=== PATIENT | male | born 1975 | race Caucasian/White ===

== ENCOUNTER → 2018-05-28 | Outpatient (CLI) | payer OTHER ==
[~2018-05-28] VITALS: Ht 180.3 cm; Wt 132.0 kg
[~2018-05-28] MED LIST: ABILIFY20 MG PO; CATAPRES 0.1MG0.1 MG PO; GLUCOPHAGE1000 MG PO; INSLANT SQ; LAMICTAL200 MG PO; LIPITOR 80MG80 MG PO; PROZAC 20MG20 MG PO; REMERON30 MG PO; VICTOZA6 MG/ML SQ; VISTARIL50 MG PO; ZESTRIL40 MG PO
[2018-05-28 14:35] VITALS: BP 120/80; PULSE 60
== END ==
LOC: LIGHT 12:56
DX: G47.33 Obstructive sleep apnea (adult) (pediatric) (principal); F32.9 Major depressive disorder, single episode, unspecified; I10 Essential (primary) hypertension; E66.9 Obesity, unspecified; Z79.4 Long term (current) use of insulin; Z71.3 Dietary counseling and surveillance
CPT/HCPCS: G0463

== ENCOUNTER → 2018-06-18 | Outpatient (CLI) | payer OTHER | LOC: LIGHT 10:06 | DX: G47.33 Obstructive sleep apnea (adult) (pediatric) (principal); F32.9 Major depressive disorder, single episode, unspecified; I10 Essential (primary) hypertension; E66.9 Obesity, unspecified; Z68.41 Body mass index [BMI] 40.0-44.9, adult; Z79.4 Long term (current) use of insulin; Z71.3 Dietary counseling and surveillance ==

== ENCOUNTER → 2018-07-09 | Outpatient (CLI) | payer OTHER ==
[~2018-07-09] VITALS: Ht 180.3 cm; Wt 132.7 kg
[2018-07-09 13:46] VITALS: BP 104/76; PULSE 64
== END ==
LOC: LIGHT 08:54
DX: G47.33 Obstructive sleep apnea (adult) (pediatric) (principal); F32.9 Major depressive disorder, single episode, unspecified; I10 Essential (primary) hypertension; E66.9 Obesity, unspecified; Z68.41 Body mass index [BMI] 40.0-44.9, adult; Z71.3 Dietary counseling and surveillance
CPT/HCPCS: G0463

== ENCOUNTER → 2018-08-06 | Outpatient (CLI) | payer OTHER ==
[~2018-08-06] VITALS: Ht 180.3 cm; Wt 132.0 kg
[2018-08-06 14:10] VITALS: BP 100/70; PULSE 72
== END ==
LOC: LIGHT 13:52
DX: G47.33 Obstructive sleep apnea (adult) (pediatric) (principal); F32.9 Major depressive disorder, single episode, unspecified; I10 Essential (primary) hypertension; E66.9 Obesity, unspecified; Z68.41 Body mass index [BMI] 40.0-44.9, adult; Z71.3 Dietary counseling and surveillance
CPT/HCPCS: G0463

== ENCOUNTER → 2018-09-10 | Outpatient (CLI) | payer OTHER ==
[~2018-09-10] VITALS: Ht 180.3 cm; Wt 136.3 kg
[2018-09-10 15:36] VITALS: BP 112/86; PULSE 88
== END ==
LOC: LIGHT 08:38
DX: G47.33 Obstructive sleep apnea (adult) (pediatric) (principal); F32.9 Major depressive disorder, single episode, unspecified; I10 Essential (primary) hypertension; E66.9 Obesity, unspecified; Z68.41 Body mass index [BMI] 40.0-44.9, adult; Z71.3 Dietary counseling and surveillance
CPT/HCPCS: G0463

== ENCOUNTER → 2018-10-02 | Outpatient (CLI) | payer OTHER | LOC: BHSO 09:00 | DX: Z01.818 Encounter for other preprocedural examination (principal) ==

== ENCOUNTER → 2018-10-29 | Outpatient (CLI) | payer OTHER ==
[~2018-10-29] VITALS: Ht 180.3 cm; Wt 134.9 kg
[2018-10-29 14:01] VITALS: BP 130/76; PULSE 60
== END ==
LOC: LIGHT 13:39
DX: G47.33 Obstructive sleep apnea (adult) (pediatric) (principal); F32.9 Major depressive disorder, single episode, unspecified; I10 Essential (primary) hypertension; E66.9 Obesity, unspecified
CPT/HCPCS: G0463

== ENCOUNTER 2018-11-18 12:37 | Inpatient (IN) | payer OTHER ==
[~2018-11-18] VITALS: Ht 182.9 cm; Wt 138.9 kg
[2018-12-18] VITALS (409 sets, daily range): BP systolic 121–156; BP diastolic 73–92; PULSE 82–106; TEMP 97.5–98.8; O2SAT 76–99
--- NOTE | 2018-12-18 05:33 | NUR ---
Patient ambulated to bay 6 without difficulty. Alert and oriented x4. Vital signs obtained WNL. Heart sounds regular, lung sounds clear, bowel sounds active. BS obtained, 113. IV started in right hand, IV fluids infusing per MD orders. All consents reviewed and signed. All questions answered. and brother at bedside. Call doe within reach, will continue to monitor.
[2018-12-18] MEDS ORDERED: FLEXERIL 1010 MG/TAB PO (06:21)
[2018-12-18] MEDS ORDERED: MOBIC 7.5MG7.5 MG PO (06:21)
[2018-12-18] MEDS ORDERED: DESYREL 100MG100 MG PO (06:22)
--- NOTE | 2018-12-18 12:19 | NUR ---
Pt admitted to ICU bed [address] [facility]. Bed transported via bed and placed on monitors upon arrival. Vitals stable. Pt reports pain as a tolerable 5. Will give scheduled Toradol and set up CREW MEMBER pump. Will continue to monitor.
--- NOTE | 2018-12-18 15:02 | NUR ---
Admission assessment complete at this time. Plan of care reviewed at bedside with patient et spouse. Additional time taken to address any other needs or concerns. Reports pain as next to zero after initiation of UPKEEP MECHANIC pump. Vitals stable. Will continue to monitor.
--- NOTE | 2018-12-18 16:00 | NUR ---
Pt resting comfortably in bed. Reports adequate pain control with SPORT INTERNSHIP pump, rating pain at a 2/10 below pain goal of 4. Vitals stable. Denies any other needs or discomfort. Will continue to monitor. Bed in low position, call light within reach.
--- NOTE | 2018-12-18 19:10 | NUR ---
Bedside report given to IRIS Najera.
[2018-12-19] VITALS (631 sets, daily range): BP systolic 91–126; BP diastolic 56–75; PULSE 76–101; TEMP 98.1–99.1; O2SAT 92–100
[2018-12-19 05:39] LABS: CALCIUM 8.6 mg/dL (8.4-10.2); CREATININE, serum 0.76 (0.66-1.25); POTASSIUM 4.4 mmol/L (3.4-5.0)
--- NOTE | 2018-12-19 07:07 | NUR ---
Bedside report recieved from IRIS Najera. Patient participates and denies pain or questions. Dilauded with CLAIM TECHNICIAN dose only with settings verified. MIVF running at ordered rate to uncomplicated RH 18g. Hart with positive yellow urine. SHANT drain to left abdomen with serosanguinous drainage noted and dressing CDI. Lap sites x5 with bandaids CDI. Patient bed in low and locked position, call light within reach, rails up x3. Care assumed.
--- NOTE | 2018-12-19 08:09 | NUR ---
Patient departs unit in with audiovisual tech for ordered barium swallow study.
--- NOTE | 2018-12-19 08:22 | NUR ---
Patient returns to ICU room 5 and is returned to monitors. He is assisted to sit in bedside recliner. Care resumed.
--- NOTE | 2018-12-19 09:10 | NUR ---
Dr. Reno called regarding administration of AM PO meds. indicates to give meds with small sip of water. States that this is appropriate prior to results of barium swallow. Care ongoing.
--- NOTE | 2018-12-19 10:16 | NUR ---
Initial visit; Patient thanked Concrete Buildings Assembler for looking in on him and offering God's blessings.
--- NOTE | 2018-12-19 10:28 | NUR ---
ROGELIO pendleton met with patient and patient's to discuss discharge plan. Patient lives in [place] with his (Natalie). Patient's PCP is Dr. Molina and he uses [facility] in [place]. Patient uses no DME other than [facility] [place]. Patient reports independence with ADLs. Patient states his DPO[facility]HC is at [facility] and it designates his . ROGELIO pendleton to request copy. Patient plans to return home with his upon discharge. No identified needs at this time.
--- NOTE | 2018-12-19 12:30 | NUR ---
MOTOR ASSEMBLY SUPERVISOR and reyes discontinued at this time as ordered.
--- NOTE | 2018-12-19 14:55 | NUR ---
Report provided to IRIS Hughes.
--- NOTE | 2018-12-19 15:51 | NUR ---
Report recieved from IRIS Infante. Pt transported to [facility] via wheelchair. Pt has no complaints. Family at bedside. Pt up to recliner. Call light within reach. Fluid intake restriction enforced and pt well educated on intake parameters.
--- NOTE | 2018-12-20 00:55 | NUR ---
Shift assessment complete. Patient ambulated to BR with standby assist. Had BM. Patient c/o 3/10 pain in abdomen, denies need for medication. 5 lap sites, covered with bandaids, CDI. Left lateral abdomen dressing CDI, with SHANT drain. SHANT drain emptied, bloody drainage noted. at bedside. Denies further needs at this time. Will continue to assess.
[2018-12-20 04:15] VITALS: BP 103/52; PULSE 86; TEMP 97.5
[2018-12-20 07:25] VITALS: BP 101/55; PULSE 85; TEMP 98.3
--- NOTE | 2018-12-20 08:30 | NUR ---
Patient alert and oriented, answers questions appropriately. See assessment. Abdomen soft, obese. Bowel sounds hyperactive x4 quads. Lap sites with edges well approximated, no drainage noted. +Flatus. SHANT intact to LLQ, compressed. Encouraged ambulation. No c/o pain or discomfort.
[2018-12-20 08:53] LABS: BASO % 0.2 % (0.0-2.0); EOS # 0.1 (0.0-0.7); EOS % 0.9 % (0-4.0); GRAN # 7.6 (1.4-6.5); GRAN % 74.4 % (42.2-75.2); HEMATOCRIT 37.7 % (42.0-52.0); HEMOGLOBIN 12.2 g/dl (13.5-18.0); LYMPH # 1.5 (1.2-3.4); LYMPH % 14.7 % (20.0-51.0); MEAN CELL VOLUME 89 fl (80.0-100.0); MEAN CORPUSCULAR HEMOGLOBIN 29 pg (27.0-31.0); MEAN CORPUSCULAR HGB CONC 32 g/dl (33.0-37.0); MEAN PLATELET VOLUME 9.2 fl (7.4-10.4); MONO # 0.9 (0.1-0.6); MONO % 8.9 % (1.7-9.3); PLATELET COUNT 191 K/mm3 (130-400); RED BLOOD COUNT 4.26 M/mm3 (4.20-5.60); REDCELL DISTRIBUTION WIDTH-CV 14.2 % (11.5-14.5)
--- NOTE | 2018-12-20 11:21 | NUR ---
Follow-up visit; Ticket Attendant talked with Chris and his offering encouragement and God's blessings.
[2018-12-20 12:10] VITALS: BP 100/53; PULSE 88; TEMP 98.2
--- NOTE | 2018-12-20 13:52 | NUR ---
PT. SITTING UP IN CHAIR IN ROOM WATCHING TV. PT. STATES PAIN IS MANAGEABLE AND HE IS COMFORTABLE AT A LEVEL OF 4/10. PT. DENIES ANY FURTHER NEEDS AT THIS TIME.
[2018-12-20 15:47] VITALS: BP 95/53; PULSE 87; TEMP 99.3
[2018-12-20 16:59] VITALS: BP 104/60; PULSE 84; TEMP 98.3
--- NOTE | 2018-12-20 18:37 | NUR ---
Pt has no complaints at this time. Pt is in his chair with call right in reach. Pts is in the room with pt. Reported off to Deidra SIMMONS
[2018-12-20 19:33] VITALS: BP 126/64; PULSE 83; TEMP 98.3
--- NOTE | 2018-12-20 22:53 | NUR ---
Pt. sitting up in bed with at bedside. Pt. is A&OX3, assessment complete. IV to rt. hand patent, IV fluids infusing per orders. Five abd. lap sites noted, edges well approximated, no dressing. SHANT drain to lt. abd. dressing CDI. Serosanguineous drainage noted. Pt. denies pain or other needs, call light within reach.
[2018-12-21] VITALS: BP 127/70; PULSE 79; TEMP 98.2
[2018-12-21 04:00] VITALS: BP 137/69; PULSE 70; TEMP 98.6
[2018-12-21 07:18] LABS: BASO % 0.2 % (0.0-2.0); EOS # 0.2 (0.0-0.7); GRAN # 5.8 (1.4-6.5); GRAN % 68.5 % (42.2-75.2); HEMOGLOBIN 10.4 g/dl (13.5-18.0); LYMPH # 1.6 (1.2-3.4); LYMPH % 18.5 % (20.0-51.0); MEAN CELL VOLUME 89 fl (80.0-100.0); MEAN CORPUSCULAR HEMOGLOBIN 28 pg (27.0-31.0); MEAN CORPUSCULAR HGB CONC 32 g/dl (33.0-37.0); MEAN PLATELET VOLUME 9.8 fl (7.4-10.4); MONO # 0.9 (0.1-0.6); MONO % 10.3 % (1.7-9.3); PLATELET COUNT 167 K/mm3 (130-400); RED BLOOD COUNT 3.67 M/mm3 (4.20-5.60); REDCELL DISTRIBUTION WIDTH-CV 13.8 % (11.5-14.5)
[2018-12-21 07:20] LABS: HEMATOCRIT 32.6 % (42.0-52.0)
[2018-12-21 07:22] VITALS: BP 131/72; PULSE 63; TEMP 97.9
[2018-12-21 07:24] LABS: CALCIUM 8.7 mg/dL (8.4-10.2); CREATININE, serum 0.94 (0.66-1.25); POTASSIUM 4.4 mmol/L (3.4-5.0)
--- NOTE | 2018-12-21 07:33 | NUR ---
Assessment completed, alert/oriented, vital signs stable, denies pain, denies nausea/vomitting, SHANT drainage Amylase was elevated yesterday/ so for now we have diet reduced to sips and chips untill a recheck is resulted from this morning to R/o leak, abdomen is soft and non-tender, BS+, heart RRR/distal pulses are palpable, lungs CTA, patient using IS as instructed and is ambulating often, denies other needs for now, explaind onces we have lab results I will talk with Surgeon and then update him on plan of care
[2018-12-21 12:44] VITALS: BP 130/72; PULSE 66; TEMP 97.9
[2018-12-21 17:33] VITALS: BP 151/78; PULSE 71; TEMP 98.9
[2018-12-21 19:42] VITALS: BP 174/80; PULSE 81; TEMP 99.5
--- NOTE | 2018-12-21 20:00 | NUR ---
REPORT RECEIVED. ASSUMED CARE OF PATIENT FOR REFRACTORY TECHNICIAN. ASSESSMENT COMPLETE. VS STABLE. SHANT DRAIN WITH APPROX 5MLS SEROSANGUINOUS FLUID. SHANT DRAIN DRESSING CHANGED AT THIS TIME. NOTED TO HAVE SEVERAL FLUID FILLED BLISTERS TO ABDOMEN. LAP SITES X5 OPEN TO AIR-WELL APPROXIMATED. DENIES NAUSEA. PASSING GAS AND HAS HAD SEVERAL STOOLS. PLAN OF CARE DISCUSSED FOR SHANT DRAIN OUTPUT COLLECTION FOR AM. DENIES NEEDS AT THIS TIME. HS MEDS TAKEN WITH SMALL SIP OF WATER. TOLERATED WELL. HAS AMBULATED IN THE OLSEN FOR APPRO 200 FEET THIS SHIFT CALL LIGHT WITHIN REACH. BED IN LOW POSITION WHEELS LOCKED. WILL MONITOR.
[2018-12-22] VITALS: BP 167/85; PULSE 73; TEMP 98.4
[2018-12-22 04:00] VITALS: BP 150/87; PULSE 65; TEMP 98.2
[2018-12-22 06:38] LABS: HEMOGLOBIN 11.5 g/dl (13.5-18.0); MEAN CELL VOLUME 88 fl (80.0-100.0); MEAN CORPUSCULAR HEMOGLOBIN 29 pg (27.0-31.0); MEAN CORPUSCULAR HGB CONC 33 g/dl (33.0-37.0); MEAN PLATELET VOLUME 9.4 fl (7.4-10.4); PLATELET COUNT 200 K/mm3 (130-400); RED BLOOD COUNT 3.94 M/mm3 (4.20-5.60); REDCELL DISTRIBUTION WIDTH-CV 13.2 % (11.5-14.5)
[2018-12-22 06:40] LABS: HEMATOCRIT 34.7 % (42.0-52.0)
--- NOTE | 2018-12-22 06:40 | NUR ---
RESTED WELL THROUGH THE NIGHT. DENIES PAIN. VS HAVE REMAINED STABLE. AM LABS DRAWN. AMYLASE LEVEL FOR SHANT DRAIN SENT TO LAB. DENIES NEEDS AT THIS TIME. REPORT GIVEN TO IRIS LAL
[2018-12-22 06:49] LABS: BAND 3 % (0-10); EOSINOPHIL 1 % (0-4); LYMPHOCYTE 22 % (20.0-51.0); NEUTROPHILS 67 % (42.0-75.2); PLATELET ESTIMATE NORMAL (NORMAL)
[2018-12-22 08:41] VITALS: BP 135/77; PULSE 64; TEMP 97.8
--- NOTE | 2018-12-22 09:24 | NUR ---
Patient alert and oriented, answers questions appropriately. See assessment. Abdomen soft, obese. Bowel sounds audible x4 quads. +Flatus. Lap sites x5 to abdomen with edges well approximated, no drainage noted. SHANT in place to LLQ, bulb compressed, no drainage noted in bulb at this time. No c/o abdominal pain or tenderness. No other c/o at this time.
--- NOTE | 2018-12-22 12:03 | NUR ---
Discharge instructions reveiwed with patient and spouse, verbalized understanding. Discharged via wheelchair to auto/home with family at 1200. Discharged with SHANT drain in place, teaching completed, drain record sent.
== END 2018-12-22 12:00 | disposition home or self-care (01) | DRG 621 ==
LOC: INPTSU 12-18 05:27 → ICU 12-18 05:27 → SURG 12-18 07:30 → ICU 12-18 12:20 → SURG 12-19 16:00
PROVIDERS: Surgery; ADMIT Surgery
PROC: 8E0W4CZ Robotic Assisted Procedure of Trunk Region, Percutaneous Endoscopic Approach (ICD-10-PCS; 2018-12-18)
PROC: 0D164ZA Bypass Stomach to Jejunum, Percutaneous Endoscopic Approach (ICD-10-PCS; principal; 2018-12-18 07:30)
DX: E66.01 Morbid (severe) obesity due to excess calories (principal); Z68.41 Body mass index [BMI] 40.0-44.9, adult; E11.9 Type 2 diabetes mellitus without complications; Z79.4 Long term (current) use of insulin; E78.00 Pure hypercholesterolemia, unspecified; I10 Essential (primary) hypertension; F43.10 Post-traumatic stress disorder, unspecified; G47.30 Sleep apnea, unspecified; F32.9 Major depressive disorder, single episode, unspecified; G89.29 Other chronic pain; M25.569 Pain in unspecified knee; M54.9 Dorsalgia, unspecified; R74.8 Abnormal levels of other serum enzymes
CPT/HCPCS: A4314; C9113; J0360; J0690; J1100; J1170; J1650; J1815; J1885; J1956; J2405; J2704; J2710; J3010; J3480; J7050; J7120; Q9967

== ENCOUNTER → 2018-11-18 | Outpatient (CLI) | payer OTHER | LOC: LIGHT 10:24 | DX: G47.33 Obstructive sleep apnea (adult) (pediatric) (principal); F32.9 Major depressive disorder, single episode, unspecified; I10 Essential (primary) hypertension; E66.9 Obesity, unspecified; Z68.41 Body mass index [BMI] 40.0-44.9, adult; Z71.3 Dietary counseling and surveillance ==

== ENCOUNTER → 2019-01-06 | Outpatient (CLI) | payer OTHER ==
[~2019-01-06] VITALS: Ht 182.9 cm; Wt 122.7 kg
[~2019-01-06] MED LIST changes: +DESYREL 100MG100 MG PO; +FLEXERIL 1010 MG/TAB PO; +MOBIC 7.5MG7.5 MG PO
[2019-01-06 14:44] VITALS: BP 114/70; PULSE 76
== END ==
LOC: LIGHT 14:21
DX: G47.33 Obstructive sleep apnea (adult) (pediatric) (principal); F32.9 Major depressive disorder, single episode, unspecified; Z98.84 Bariatric surgery status; E66.9 Obesity, unspecified; Z68.37 Body mass index [BMI] 37.0-37.9, adult; Z71.3 Dietary counseling and surveillance

== ENCOUNTER → 2019-02-03 | Outpatient (CLI) | payer OTHER ==
[~2019-02-03] VITALS: Ht 182.9 cm; Wt 115.2 kg
[~2019-02-03] MED LIST changes: +CALCIUM 600MG+D1 TAB PO; -GLUCOPHAGE1000 MG PO; +GLUCOPHAGE500 MG/TAB PO; +LIPITOR 40MG TA40 MG PO; -LIPITOR 80MG80 MG PO; +MULTI-VITAMIN W1 TA2 PO; +VITAMIN B12 1541 TAB PO; +VITAMIND3 5000 PO
[2019-02-03 12:52] VITALS: BP 94/60; PULSE 56
== END ==
LOC: LIGHT 10:46
DX: G47.33 Obstructive sleep apnea (adult) (pediatric) (principal); F32.9 Major depressive disorder, single episode, unspecified; Z98.84 Bariatric surgery status; E66.9 Obesity, unspecified; Z68.34 Body mass index [BMI] 34.0-34.9, adult; Z71.3 Dietary counseling and surveillance

== ENCOUNTER → 2019-03-17 | Outpatient (CLI) | payer OTHER ==
[~2019-03-17] VITALS: Ht 182.9 cm; Wt 104.3 kg
[2019-03-17 13:33] VITALS: BP 102/58; PULSE 52
== END ==
LOC: LIGHT 12:53
DX: G47.33 Obstructive sleep apnea (adult) (pediatric) (principal); F32.9 Major depressive disorder, single episode, unspecified; Z98.84 Bariatric surgery status; E66.9 Obesity, unspecified; Z68.31 Body mass index [BMI] 31.0-31.9, adult; Z71.3 Dietary counseling and surveillance

== ENCOUNTER → 2020-02-02 | Outpatient (CLI) | payer OTHER ==
[~2020-02-02] VITALS: Ht 182.9 cm; Wt 91.9 kg
[~2020-02-02] MED LIST changes: -CATAPRES 0.1MG0.1 MG PO; +CATAPRES0.3 MG PO
[2020-02-02 13:55] VITALS: BP 106/60; PULSE 72
== END ==
LOC: LIGHT 11:49
DX: E66.8 Other obesity (principal); Z68.27 Body mass index [BMI] 27.0-27.9, adult; Z98.84 Bariatric surgery status
CPT/HCPCS: G0463